=== PATIENT | male | born 1975 | race Caucasian/White ===

== ENCOUNTER 2018-07-05 09:24 | Emergency (ER) | payer OTHER ==
--- NOTE | 2018-07-05 10:14 | XRAY Report ---
Reason: tightness Procedure Date: 07/05/2018 Accession Number: [id number] / [id number] Procedure: XR - Chest 1 View X-Ray CPT Code: 91438 FULL RESULT: EXAM: CHEST RADIOGRAPHY EXAM DATE: 07/05/2018 09:56 AM. CLINICAL HISTORY: Tightness. Left-sided tingling and numbness today. COMPARISON: None. TECHNIQUE: 1 view. FINDINGS: Lungs/Pleura: No focal opacities evident. No pleural effusion. No pneumothorax. Mediastinum: Within exam limitations, the cardiomediastinal contour is normal. Other: None. IMPRESSION: Normal single view chest. RADIA
[2018-07-05 10:25] LABS: BASOPHILS % (AUTO) 0.4 %; EOSINOPHILS # (AUTO) 0.1 10^3/uL (0.0-0.7); EOSINOPHILS % (AUTO) 1.3 %; HGB - HEMOGLOBIN 14.6 g/dL (14.0-18.0); MEAN CORPUSCULAR HEMOGLOBIN 34.9 pg (27.0-31.0); MEAN CORPUSCULAR HGB CONC 35.3 g/dL (32.0-36.0); MEAN CORPUSCULAR VOLUME 98.6 fL (80.0-94.0); MEAN PLATELET VOLUME 7.6 fL (7.4-11.4); MONOCYTES # (AUTO) 0.4 10^3/uL (0.0-1.0); MONOCYTES % (AUTO) 8.1 %; NEUTROPHILS # (AUTO) 3.4 10^3/uL (1.5-6.6); NEUTROPHILS % (AUTO) 69.2 %; PLT - PLATELET COUNT 162 10^3/uL (130-450); RED BLOOD COUNT 4.19 10^6/uL (4.70-6.10); RED CELL DISTRIBUTION WIDTH 13.4 % (12.0-15.0); WHITE BLOOD COUNT 4.8 x10^3/uL (4.8-10.8)
[2018-07-05 10:42] LABS: ALBUMIN 4.3 g/dL (3.2-5.5); ALBUMIN/GLOBULIN RATIO 1.3 (1.0-2.2); BILIRUBIN,TOTAL 0.6 mg/dL (0.2-1.0); CALCIUM 8.9 mg/dL (8.5-10.3); CREATININE 0.6 mg/dL (0.6-1.2); TOTAL PROTEIN 7.7 g/dL (6.7-8.2)
[2018-07-05] MEDS ORDERED: MAG HYDROX/AL HYDROX/SIMETH 30 ML UDC PO STA (10:47)
[2018-07-05] MEDS ORDERED: LIDOCAINE VISCOUS 2% 15 ML UDC MM STA (10:48)
--- NOTE | 2018-07-05 10:50 | ED Physician Documentation ---
PD HPI CHEST PAIN - Stated complaint Stated Complaint: LEFT SIDE NUMBNESS - Chief complaint Chief Complaint: Cardiac - History obtained from History obtained from: Patient - History of Present Illness Timing - onset: How many hours ago (1.5) Timing - onset during: Rest Timing - details: Still present (but better) Quality: Aching Location: Substernal Radiation: Left upper extremity Similar symptoms before: No diagnosis (Similar episode one week ago.) - Additional information Additional information: The patient is a 42-year-old male who presents with tingling in his left hand and arm, with slight chest tightness that started about 1/2 hours prior to arrival while sitting smoking a cigarette. His symptoms are improved now but not completely resolved. He denies any associated shortness of breath, diaphore sis, or vomiting. He did have mild nausea initially. He reports having a history of similar episode about 1 week ago, lasting for about 4 hours before it resolved. Cardiac risk factors are positive for cigarette smoking and for family history in which his grandfather while in his 40s, presumably from cardiac cause. He has no history of diabetes, hypertension, or hyperlipidemia. He reports history of "heartburn." Review of Systems Constitutional: denies: Fever Ears: denies: Tinnitus/ringing Nose: denies: Congestion Throat: denies: Sore throat Cardiac: reports: Chest pain / pressure. denies: Palpitations Respiratory: denies: Dyspnea, Cough GI: reports: Nausea (mild). denies: Abdominal Pain, Vomiting : denies: Dysuria Skin: denies: Rash Musculoskeletal: denies: Neck pain, Back pain, Extremity swelling Neurologic: reports: Numbness (Tingling left UE.). denies: Focal weakness, Headache PD PAST MEDICAL HISTORY - Past Medical History Past Medical History: No Cardiovascular: None Endocrine/Autoimmune: None - Past Surgical History Past Surgical History: Yes HEENT: Tonsil/Adenoidectomy - Present Medications Home Medications: Ambulatory Orders Medication Instructions Recorded Confirmed raNITIdine HCl [Ranitidine HCl] 150 mg PO BID #28 capsule 07/05/18 - Allergies Allergies/Adverse Reactions: Allergies Allergy/AdvReac Type Severity Reaction Status Date / Time No Known Drug Allergies Allergy Verified 07/05/18 09:35 - Social History Does the pt smoke?: Yes Smoking Status: Current every day smoker Does the pt drink ETOH?: Yes Does the pt have substance abuse?: No - Immunizations Immunizations are current?: No PD ED PE NORMAL - Vitals Vital signs reviewed: Yes (Borderline hypertension.) - General General: Alert and oriented X 3, Well developed/nourished, Other (Faint odor of stale alcohol on breath.) - HEENT HEENT: Atraumatic, Pharynx benign - Neck Neck: No adenopathy, No JVD - Cardiac Cardiac: RRR, No murmur - Respiratory Respiratory: No respiratory distress, Clear bilaterally - Abdomen Abdomen: Soft, Non tender - Back Back: No CVA TTP - Derm Derm: No rash - Extremities Extremities: No edema, No calf tenderness / cord - Neuro Neuro: Alert and oriented X 3, No motor deficit, No sensory deficit, Normal speech Results - Vitals Vitals: Vital Signs - 24 hr 07/05/18 07/05/18 11:09 11:45 Heart Rate 94 79 Respiratory 20 20 Rate Blood Pressure 137/97 H 136/104 H O2 Saturation 98 96 Oxygen O2 Source Room air - EKG (time done) 09:48 Rate: Rate (enter#) (70) Rhythm: NSR [place]: Normal Intervals: Normal NE QRS: LVH Ischemia: Normal ST segments Computer interpretation: Agree with computer - Labs Labs: Laboratory Tests 07/05/18 07/05/18 07/05/18 10:15 10:15 10:15 WBC 4.8 RBC 4.19 L Hgb 14.6 Hct 41.3 L MCV 98.6 H MCH 34.9 H MCHC 35.3 RDW 13.4 Plt Count 162 MPV 7.6 Neut # (Auto) 3.4 Lymph # (Auto) 1.0 L [place] # (Auto) 0.4 Eos # (Auto) 0.1 Baso # (Auto) 0.0 Absolute Nucleated RBC 0.00 Nucleated RBC % 0.0 Sodium 136 Potassium 3.8 Chloride 103 Carbon Dioxide 26 Anion Gap 7.0 BUN 12 Creatinine 0.6 Estimated GFR (MDRD) 148 Glucose 117 H Calcium 8.9 Total Bilirubin 0.6 AST 79 H ALT 97 H Alkaline Phosphatase 54 Troponin I < 0.04 Total Protein 7.7 Albumin 4.3 Globulin 3.4 Albumin/Globulin Ratio 1.3 Lipase 42 - Rads (name of study) cxr Radiology: Prelim report reviewed, EMP read contemporaneously, See rad report (Normal chest radiography.) PD MEDICAL DECISION MAKING - ED course Complexity details: reviewed results, re-evaluated patient, considered differential, d/w patient, d/w family ED course: The patient's presentation is most consistent with gastroesophageal reflux disease. I doubt cardiac etiology, and his chest x-ray reveals no evidence of pulmonary etiology. Treatment in the emergency department included administration of GI cocktail, which completely relieved his symptoms. He is being discharged with a prescription for ranitidine. I discussed with him and his the diagnosis, symptomatic treatment and outpatient follow-up, as well as potentially worrisome signs or symptoms that should prompt reevaluation in the emergency department. Departure - Departure Disposition: 01 Home, Self Care Clinical Impression: GERD (gastroesophageal reflux disease) Qualifiers: Esophagitis presence: esophagitis presence not specified Qualified Code(s): K21.9 - Gastro-esophageal reflux disease without esophagitis Condition: Stable Instructions: ED GERD Follow-Up: [facility] [Provider Group] Prescriptions: raNITIdine HCl [Ranitidine HCl] 150 mg PO BID #28 capsule Comments: Minimize coffee, rubio, and alcohol. Take ranitidine twice daily as prescribed. Follow-up with primary physician within 2 weeks. Call to schedule appointment. Return to the emergency department if you develop increasing chest pain, shortness of breath, persistent vomiting, or otherwise worsening. Discharge Date/Time: 07/05/18 11:54
[2018-07-05 11:46] VITALS: BP 136/104
== END 2018-07-05 11:54 | disposition home or self-care (01) ==
LOC: ED 09:24
DX: K21.9 Gastro-esophageal reflux disease without esophagitis (principal); F17.210 Nicotine dependence, cigarettes, uncomplicated
CPT/HCPCS: 36415; 71045; 80053; 83690; 84484; 85025; 93005; 99283; 99284; A9270